=== PATIENT | female | born 1940 | race Caucasian/White ===

== ENCOUNTER → 2018-04-10 | Outpatient (CLI) | payer MEDICARE, OTHER ==
--- NOTE | 2018-04-11 12:18 | RADIOLOGY REPORT (SQ) ---
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 RADIONUCLIDE AND DOSE: 10.0 mCi F18 FDG The route of agent administration: Intravenous FASTING BLOOD SUGAR: 105 mg/dl CONTRAST TYPE AND DOSE: No CT contrast given. TECHNIQUE: Blood glucose level was verified. Above dose of FDG was injected intravenously. 2-D seg mented attenuation correction images were obtained from the base of the skull to the midthighs. Nonc ontrast CT images were obtained for attenuation correction and fusion with emission images. CT image s were performed without oral or intravenous contrast and are not sensitive for parenchymal lesions. A series of overlapping emission PET images were obtained. Images reviewed and manipulated at [facility] [employer] work station by the radiologist. Images stored on PACS. LIMITATIONS: None. FINDINGS: HEAD AND NECK: Focal area of increased activity in the left lobe of the thyroid, mean SUV 6.21. No other areas of abnormal metabolic activity in the soft tissues of the head and neck. CHEST: No areas of abnormal metabolic activity in the chest. ABDOMEN AND PELVIS: Focal increased activity in the transverse colon, mean SUV 12.36. Unremarkable a ppearance on CT due to lack of oral and intravenous contrast. No other areas of abnormal metabolic a ctivity in the abdomen or pelvis. Expected physiologic activity is present in the genitourinary syst em and bowel. PROXIMAL LOWER EXTREMITIES: No areas of abnormal metabolic activity in the soft tissues of the lower extremities. BONES: No abnormal metabolic activity in the visualized skeleton. ADDITIONAL CT FINDINGS: Gallstones. Fairly extensive colonic diverticulosis. No additional signific ant findings on the noncontrast CT images. OTHER: Background liver activity mean SUV 2.47. Background blood pool activity mean SUV 1.74. IMPRESSION: 1. FOCAL INCREASED ACTIVITY IN THE TRANSVERSE COLON WHICH CORRESPONDS WITH RECENTLY DIAGNOSED ADENOCA RCINOMA. NO OTHER ABNORMAL ACTIVITY IN THE CHEST, ABDOMEN, OR PELVIS. 2. FOCAL AREA OF INCREASED ACTIVITY IN THE LEFT LOBE OF THE THYROID. ON THE PRIOR PET SCAN IN 2011 THERE IS INCREASED ACTIVITY IN THIS SAME AREA ON THE IMAGES BUT SUV VALUES ARE NOT AVAILABLE. THIS MAY BE DUE TO A THYROID ADENOMA. IF THIS HAS NOT BEEN PREVIOUSLY EVALUATED, MAY CONSIDER ULTR ASOUND OF THE THYROID AND POTENTIALLY ULTRASOUND-GUIDED FINE-NEEDLE ASPIRATION BIOPSY. 3. NO OTHER ABNORMAL FINDINGS ON PET IMAGING. INCIDENTAL CT FINDINGS ABOVE. TECHNICAL DOCUMENTATION: JOB ID: [id number] [email or web address] All Rights Reserved Reading location - IP/workstation name: [email or web address]
== END ==
LOC: RAD 17:24
PROVIDERS: ATTEND Internal Medicine Medical Oncology
DX: C18.9 Malignant neoplasm of colon, unspecified (principal)
CPT/HCPCS: 78815; A9552